=== PATIENT | female | born 1980 | race Two or more races ===

== ENCOUNTER 2018-09-01 00:24 | Emergency (ER) | payer MEDICAID ==
[~2018-09-01] VITALS: Ht 162.6 cm; Wt 66.7 kg
[2018-09-01] MEDS ORDERED: ONDANSETRON ODT 4 MG TAB.RAPDIS SL ONE (01:00)
[2018-09-01] MEDS ORDERED: SODIUM BICARBONATE 4.2 % (NEUT) 5 ML VIAL TP ONE (01:00)
[2018-09-01] MEDS ORDERED: CEFTRIAXONE 1 G VIAL IM ONE (01:00)
[2018-09-01] MEDS ORDERED: HYDROMORPHONE 1 MG/1 ML DISP.SYRIN IM ONE (01:00)
[2018-09-01] MEDS ORDERED: HYDROMORPHONE 1 MG/1 ML DISP.SYRIN IV ONE (01:00)
[2018-09-01] MEDS ORDERED: SULFAMETH/TRIMETH 800/160 MG TABLET PO ONE (01:00)
[2018-09-01] MEDS ORDERED: LORAZEPAM 2 MG/1 ML VIAL IV ONE (01:00)
[2018-09-01] MEDS ORDERED: LIDOCAINE 1%-EPI 1:100,000 20 ML VIAL TP ONE (01:00)
[2018-09-01] MEDS ORDERED: LORAZEPAM 0.5 MG TABLET PO ONE (01:00)
[2018-09-01] MEDS ORDERED: ONDANSETRON 4 MG/2 ML VIAL IV ONE (01:00)
--- NOTE | 2018-09-01 01:00 | NUR ---
Pt ambulated in ER with stable gait for the c/o right thigh swelling/abcess. Pt states it worsened today after applying heat to it. Pt placed on monitor and made aware of plan of care.
--- NOTE | 2018-09-01 01:15 | NUR ---
Pt refused to have IV started. ER made aware.
[2018-09-01] MEDS ORDERED: CEFTRIAXONE 1 G VIAL ONE (01:29)
[2018-09-01] MEDS ORDERED: LIDOCAINE HCL 1% 20 ML VIAL ONE (01:29)
[2018-09-01] MEDS ORDERED: LORAZEPAM 1 MG TABLET ONE (01:29)
[2018-09-01] MEDS ORDERED: ONDANSETRON ODT 4 MG TAB.RAPDIS ONE (01:29)
[2018-09-01] MEDS ORDERED: SULFAMETH/TRIMETH 800/160 MG TABLET ONE (01:30)
[2018-09-01] MEDS ORDERED: HYDROMORPHONE 2 MG/1 ML DISP.SYRIN ONE (01:35)
--- NOTE | 2018-09-01 02:25 | NUR ---
Patient discharged to home in stable conditon. Written and verbal after care instructions given. Patient verbalizes understanding of instructions. Patient ambulated out of ER with stable gait.
[2018-09-01 02:32] VITALS: BP 128/74
== END 2018-09-01 02:25 | disposition home or self-care (01) ==
LOC: ER 00:33
DX: L02.415 Cutaneous abscess of right lower limb (principal); L03.115 Cellulitis of right lower limb; F17.290 Nicotine dependence, other tobacco product, uncomplicated; Z71.6 Tobacco abuse counseling
CPT/HCPCS: 10060; 96372 ×2; 99284; 99406; J0696; J1170; J3490 ×3; A4217; A4663; Q0162